=== PATIENT | male | born 1970 | race African-American/Black ===

== ENCOUNTER 2023-03-20 08:49 | Emergency (ER) | payer MEDICAID ==
[~2023-03-20] VITALS: Ht 170.2 cm; Wt 70.0 kg
[2023-03-20] VITALS (7 sets, daily range): BP systolic 125; BP diastolic 84; PULSE 145–154; RESP 30–35; TEMP 98.2; O2SAT 100
[~2023-03-20 08:49] MED LIST: LEVO25TA7 PO; METO25TA6 PO; OLAN10TA72 PO; VALP250S4 GT
[2023-03-20] MEDS ORDERED: PIPERACILLIN/TAZ 3.375G PREMIX 50 ML IV ONE (09:15)
[2023-03-20] MEDS ORDERED: SODIUM CHLORIDE 0.9% 1000ML BAG (SEPSIS BOLUS) IV ONE (09:15)
[2023-03-20] MEDS ORDERED: VANCOMYCIN 1G PREMIX 200 ML IV ONE (09:15)
[2023-03-20 09:27] LABS: BG CARBOXYHEMOGLOBIN 0.3 % (0.5-1.5); BG DEOXYHEMOGLOBIN 0.6 % (0.0-5.0); BG METHEMOGLOBIN 0.4 % (0.0-1.5); BG OXYGEN SATURATION 99.4 % (92.0-98.5); BG OXYHEMOGLOBIN 98.7 % (94.0-97.0); BG PCO2 36.7 mmHg (35.0-45.0); BG PH 7.354 (7.350-7.450); BG SAMPLE SITE RIGHT BRACHIAL; BG TOTAL HEMOGLOBIN 10.6 g/dL (12.0-18.0); BG VENT MODE VENT - AC
[2023-03-20] MEDS ORDERED: NOREPINEPHRINE 8MG/250ML PMX 250 ML IV ONE ×2 (09:30→16:30)
[2023-03-20 10:29] LABS: CLARITY URINE CLOUDY (CLEAR); COLOR URINE DARK YELLOW (YELLOW); PH URINE 5.5 (4.5-8.0); PROTEIN URINE 2+ (NEGATIVE); SPECIFIC GRAVITY URINE 1.023 (1.005-1.030)
[2023-03-20 10:30] LABS: GLUCOSE URINE NEGATIVE (NEGATIVE); KETONES URINE NEGATIVE (NEGATIVE); LEUKOCYTE ESTERASE URINE NEGATIVE (NEGATIVE); NITRITE URINE NEGATIVE (NEGATIVE); OCCULT BLOOD URINE 2+ (NEGATIVE)
[2023-03-20 10:39] LABS: HEMATOCRIT. 31.7 % (42.0-52.0); HEMOGLOBIN. 9.6 g/dL (14.0-18.0); MEAN CORPUSCULAR HEMOGLOBIN 27.1 pg (28.0-32.0); MEAN CORPUSCULAR HGB CONC 30.4 g/dL (31.0-37.0); MEAN CORPUSCULAR VOLUME 89.2 fL (80.0-94.0); RED BLOOD CELL COUNT 3.55 mill/uL (4.7-6.1); RED CELL DISTRIBUTION WIDTH 16.4 % (11.6-14.6); WHITE BLOOD COUNT 16.7 x1000/uL (4.5-11.0)
[2023-03-20 10:42] LABS: DIFFERENTIAL COMMENT 1
[2023-03-20 10:45] LABS: INR 1.2
[2023-03-20 10:51] LABS: CHLORIDE 125 mEq/L (98-107); POTASSIUM 3.3 mEq/L (3.5-5.1)
[2023-03-20 10:52] LABS: *AMPHETAMINES SCREEN URINE NEGATIVE (NEGATIVE); *BARBITURATES SCREEN URINE NEGATIVE (NEGATIVE); *BENZODIAZEPINES SCREEN URINE NEGATIVE (NEGATIVE); *COCAINE SCREEN URINE NEGATIVE (NEGATIVE); CANNABINOID URINE SCREEN NEGATIVE (NEGATIVE); ECSTASY MDMA SCREEN URINE NEGATIVE (NEGATIVE); OPIATES URINE SCREEN NEGATIVE (NEGATIVE); PHENCYCLIDINE URINE SCREEN NEGATIVE (NEGATIVE)
[2023-03-20 10:56] LABS: BACTERIA URINE 1+; SQUAMOUS EPITHELIAL CELL URINE NONE SEEN /lpf (RARE/1+)
[2023-03-20 11:00] LABS: ALANINE AMINOTRANSFERASE 188 IU/L (13-61); ALBUMIN 2.3 g/dL (3.4-5.0); ASPARTATE AMINOTRANSFERASE 290 IU/L (15-37); BILIRUBIN TOTAL 0.7 mg/dL (0.1-1.0); CALCIUM 8.9 mg/dL (8.5-10.1); CARBON DIOXIDE 26 mEq/L (21-32); CREATINE KINASE 636 IU/L (39-308); GLUCOSE 218 mg/dL (70-105); LACTATE DEHYDROGENASE 609 IU/L (100-240); NT PRO B-TYPE NATRIURETIC PEP 1001 pg/mL (5-125); PROTEIN TOTAL 10.5 g/dL (6.0-8.3); TROPONIN I HIGH SENSITIVITY 41 ng/L (<78); UREA NITROGEN BLOOD 55 mg/dL (7-21)
[2023-03-20 11:00] LABS: WBC URINE 0-2 /hpf (0-2)
[2023-03-20] MEDS ORDERED: LEVETIRACETAM 500MG PREMIX 100 ML IV SCH (11:00)
[2023-03-20 11:02] LABS: SODIUM 157 mEq/L (136-145)
[2023-03-20 11:10] LABS: LACTIC ACID 2.9 mmol/L (0.4-2.0); PLATELET 303 x1000/uL (130-400)
[2023-03-20 11:13] LABS: ANISOCYTOSIS 1+; PLATELET ESTIMATE NORMAL
[2023-03-20] MEDS ORDERED: PROPOFOL 10MG/ML 100ML 100 ML IV PRN (12:00)
[2023-03-20] MEDS ORDERED: IPRATROPIUM/ALBUTEROL 0.5-3(2.5)MG/3ML NEB HHN SCH (12:00)
[2023-03-20] MEDS ORDERED: MEROPENEM 1,000 MG in SODIUM CHLORIDE 0.9% 100 ML IV SCH (13:00)
[2023-03-20] MEDS ORDERED: SODIUM CHLORIDE 0.9% 1,000 ML IV ONE (13:30)
[2023-03-20 14:14] LABS: LACTIC ACID 2.9 mmol/L (0.4-2.0)
[2023-03-20] MEDS ORDERED: DEXTROSE 50% WATER 50ML SYRINGE IV PRN (14:45)
[2023-03-20] MEDS ORDERED: PIPERACILLIN/TAZOBACTAM 3.375 G in DEXTROSE 5% WATER 50 ML IV SCH (15:00)
[2023-03-20] MEDS ORDERED: SODIUM CHLORIDE 0.45% 1,000 ML IV NR (15:00)
[2023-03-20 15:32] LABS: IRON 46 ug/dL (50-175); T4 FREE 0.95 ng/dL (0.76-1.46); TOTAL IRON BINDING CAPACITY 219 ug/dL (250-450)
[2023-03-20 15:49] LABS: VITAMIN B12 SERUM 1576 pg/mL (211-911)
[2023-03-20 16:11] LABS: FERRITIN 3390 ng/mL (22-322)
[2023-03-20] MEDS ORDERED: DOXYCYCLINE 100 MG in DEXT 5% WATER 100 ML IV SCH (17:00)
[2023-03-20] MEDS ORDERED: BLOOD SUGAR DIAGNOSTIC STRIP TEST SCH (17:00)
[2023-03-20] MEDS ORDERED: INSULIN LISPRO 100 UNITS/ML SUBCUT SCH (18:20)
[2023-03-21] MEDS ORDERED: LEVOTHYROXINE SODIUM 25MCG TABLET PO SCH (07:50)
[2023-03-21] MEDS ORDERED: ENOXAPARIN 40MG/0.4ML SYR SUBCUT SCH (09:00)
[2023-03-21] MEDS ORDERED: PANTOPRAZOLE SODIUM 40 MG/VIAL IV SCH (09:00)
[2023-03-21] MEDS ORDERED: OLANZAPINE 2.5MG TABLET PEG SCH (09:00)
[2023-03-21 11:54] LABS: SODIUM URINE RANDOM 12 mEq/L
[2023-03-21 14:47] LABS: OSMOLALITY URINE 578 mOsm/kg (500-850)
== END 2023-03-21 04:45 ==
LOC: ER 08:55 → EDBEDREQTM 11:24 → EDBEDREQ 11:24 → ER 03-21 04:45
DX: A41.9 Sepsis, unspecified organism (principal); K21.9 Gastro-esophageal reflux disease without esophagitis; D64.9 Anemia, unspecified; I10 Essential (primary) hypertension; E03.9 Hypothyroidism, unspecified
CPT/HCPCS: 80053; 80305; 81003; 82550; 82607; 82728; 82746; 82962; 83880; 84439; 83540; 83550; 83605; 83615; 83735; 83935; 84100; 84300; 84443; 85025; 85610; 86850; 86900; 86901; 87040; 87086; 84484; 87804 ×2; 36415; 84145; 71045; 70450; 82805; 82375; 31500 ×2; 93005; 96368; 96361; 96365; 99291; 36600; J1953; J3490 ×2; J2185; J2543; J2704; J3370; Z7610 ×7; J7060; J7050; J7030; 94002